=== PATIENT | female | born 1950 | race Caucasian/White ===

== ENCOUNTER → 2016-06-20 | Outpatient (CLI) | payer OTHER | END | disposition home or self-care (01) | LOC: C.LAB1850 15:35 | PROVIDERS: ATTEND Internal Medicine | DX: E83.52 Hypercalcemia (principal) ==

== ENCOUNTER → 2016-09-04 | Outpatient (CLI) | payer OTHER, MEDICARE ==
--- NOTE | 2016-09-04 12:39 | DIAGNOSTIC IMAGING REPORT ---
LUMBAR SPINE MRI HISTORY: M54.30 Back pain with sciatic aPt scheduled for 08/29/16 @ 11:15AM TECHNIQUE: Multiplanar multisequence MRI of the lumbar spine was performed without the use of contrast. COMPARISON: None. FINDINGS: For the purpose of the report the L5-S1 disc space will be located on axial image 23 of 25. No fractures of dictation within the lumbar spine. The conus terminates at the T12-L1 disc space level. There is disc desiccation throughout the majority of the lumbar spine. There is mild disc space narrowing at L4-L5. The visualized paraspinal soft tissues are unremarkable. Mild to moderate facet degenerative changes within the mid to lower lumbar spine. L1-L2: Tiny disc bulge with a focal central annular tear. No central canal or neural foraminal narrowing. L2-L3: Broad-based posterior disc bulge resulting in mild central canal narrowing. No significant neural foraminal narrowing. L3-L4: Broad-based posterior disc bulge asymmetric to the right with a small focal central disc protrusion. In conjunction with the ligamentum and facet hypertrophy this results in moderate to severe central canal narrowing. The AP diameter of the central canal is 6 mm. Moderate right neural foraminal narrowing. L4-L5: Broad-based posterior disc bulge asymmetric to the left with a focal central annular tear. In conjunction with the ligamentum and facet hypertrophy this results in moderate central canal narrowing. There is moderate left and mild right neural foraminal narrowing. L5-S1: Small focal central disc protrusion with a small broad-based posterior disc bulge. No significant central canal narrowing. However, there is mild compression of the transiting right S1 nerve root due to the small disc bulge/protrusion and hypertrophy of the right facet. IMPRESSION: 1. Multilevel lumbar spondylosis as described above most pronounced at the L3-L4 level where there is moderate to severe central canal narrowing. 2. There is moderate central canal narrowing L4-L5. 3. Mild compression of the transiting right S1 nerve root due to a small broad-based posterior disc bulge, a small focal central disc protrusion, and the right-sided facet hypertrophy at the L5-S1 level. Electronically signed by: Randall Ferguson M.D. 09/04/2016 12:38 PM Dictated Date/Time: 09/04/2016 12:29 PM
== END | disposition home or self-care (01) ==
LOC: C.MRI 10:49
PROVIDERS: ATTEND Internal Medicine
DX: M47.896 Other spondylosis, lumbar region (principal); M51.17 Intervertebral disc disorders with radiculopathy, lumbosacral region

== ENCOUNTER → 2018-02-01 | Outpatient (CLI) | payer OTHER, MEDICARE ==
[2018-02-01 14:14] LABS: BASO % 0.4 %; BASO ABS # 0.03 K/uL (0-0.2); EOS % 4.6 %; EOS ABS # 0.36 K/uL (0-0.5); HEMATOCRIT 36.9 % (37-47); HEMOGLOBIN 11.9 g/dL (12.0-16.0); IG# 0.01 K/uL (0.00-0.02); LYMPH % 23.8 %; LYMPH ABS # 1.85 K/uL (1.2-3.4); MEAN CELL VOLUME 85.8 fL (80-100); MEAN CORPUSCULAR HEMOGLOBIN 27.7 pg (25-34); MEAN CORPUSCULAR HGB CONC 32.2 g/dl (32-36); MEAN PLATELET VOLUME 9.9 fL (7.4-10.4); MONO % 9.5 %; MONO ABS # 0.74 K/uL (0.11-0.59); NEUT % 61.6 %; NEUT ABS # 4.77 K/uL (1.4-6.5); PLATELET COUNT 383 K/uL (130-400); RED CELL DISTRIBUTION WIDTH CV 13.9 % (11.5-14.5); RED CELL DISTRIBUTION WIDTH SD 43.2 fL (36.4-46.3); WHITE BLOOD COUNT 7.76 K/uL (4.8-10.8)
== END | disposition home or self-care (01) ==
LOC: C.LAB1850 12:29
PROVIDERS: ATTEND Internal Medicine
DX: E11.9 Type 2 diabetes mellitus without complications (principal)